=== PATIENT | male | born 2000 | race Caucasian/White ===

== ENCOUNTER 2021-09-16 05:39 | Emergency (ER) | payer SELFPAY ==
[~2021-09-16] VITALS: Ht 185.4 cm; Wt 89.8 kg
[2021-09-16 05:40] VITALS: BP 122/78
--- NOTE | 2021-09-16 05:42 | NUR ---
Place patient on Bed 9.
--- NOTE | 2021-09-16 05:45 | NUR ---
21 YO/M BOBY FROM [facility] W C/O N/V X3 EPISODES, + DIARRHEA X9 EPISODES (WATERY), +GENERALIZED ABDOMINAL PAIN DULL 5/10 NON-RAD CONSTANT SINCE 030, SYMPTOMS BEGAN S/P DRINKING 20ML OF MYLANTA LAXATIVE AT 0100 FOR "STOMACH FEELING FULL." PT DENIES ANY BLOOD IN EMESIS OR BOWEL, DENIES DIZZYNESS, CHEST PAIN, SOB, FEVERS OR CHILLS. PT WAS GIVEN 4MG ZOFRAN BY SYLVIA W MILD RELIEF. PT DOES NOT WANT PAIN MEDICATION AT THIS TIME. BREATHING EVEN AND UNLABORED. NAD NOTED, WILL CONTINUE TO MONITOR. PMH:DENIES ALLERGIES: DENIES
[2021-09-16] MEDS ORDERED: NACL 0.9% 1,000 ML IV ONE ×2 (05:55→07:05)
--- NOTE | 2021-09-16 06:20 | NUR ---
Dr. Terrell examining patient.
[2021-09-16 06:29] LABS: BASOPHILS % (AUTO) 0.1 % (0.0-2.0); EOSINOPHILS % (AUTO) 0.1 % (0.0-4.0); HEMATOCRIT 44.7 % (36-52); HEMOGLOBIN 14.8 g/dL (12.0-18.0); LYMPHOCYTES # (AUTO) 0.3 K/uL (2.0-11.5); LYMPHOCYTES % (AUTO) 1.7 % (20.5-51.1); MEAN CORPUSCULAR HEMOGLOBIN 28 pg (27-31); MEAN CORPUSCULAR HGB CONC 33 g/dL (33-37); MEAN CORPUSCULAR VOLUME 83.8 fL (80-94); MONOCYTES # (AUTO) 0.8 K/uL (0.8-1.0); MONOCYTES % (AUTO) 5.6 % (1.7-9.3); NEUTROPHILS % (AUTO) 92.5 % (42.2-75.2); PLATELET COUNT (AUTO) 175 K/uL (140-450); RED BLOOD CELL COUNT(AUTO) 5.34 MIL/uL (4.20-6.10); RED CELL DISTRIBUTION WIDTH 14.1 % (11.6-13.7); WHITE BLOOD COUNT (AUTO) 15.2 K/uL (4.5-11.0)
[2021-09-16] MEDS ORDERED: DIPHENOXYLATE /ATROPINE 2.5 MG TAB PO ONE (06:35)
--- NOTE | 2021-09-16 06:52 | NUR ---
pt ambulatory to bathroom w steady gait.
--- NOTE | 2021-09-16 07:02 | NUR ---
PT NOPW REQUESTING ABDOMINAL PAIN MEDICATION AND FOR NAUSEA, BRENDAD MADE AWARE.
[2021-09-16] MEDS ORDERED: FAMOTIDINE 20 MG/2 ML VIAL IVP ONE (07:05)
[2021-09-16] MEDS ORDERED: ONDANSETRON 4 MG/2 ML VIAL IVP ONE (07:05)
[2021-09-16] MEDS ORDERED: KETOROLAC 30 MG/ML VIAL IVP ONE (07:05)
[2021-09-16 07:11] LABS: ANION GAP 12.4 (8-16); CARBON DIOXIDE 26.1 mmol/L (21-32); CREATININE 1.1 mg/dL (0.6-1.3); POTASSIUM 4.5 mmol/L (3.5-5.1); TOTAL BILIRUBIN 0.5 mg/dL (0.0-1.0)
[2021-09-16 07:23] LABS: ALBUMIN 4.2 g/dL (3.4-5.0)
--- NOTE | 2021-09-16 07:29 | NUR ---
Pt report given to [facility]. Transfer of care at this time.
--- NOTE | 2021-09-16 07:32 | NUR ---
PT C/O N/V/D SINCE 99. MEDICATED PER MD ORDER. FLUIDS INFUSING. NAD. SAFETY MAINTAINED.
[2021-09-16] MEDS ORDERED: ONDA-188 PO (08:37)
[2021-09-16] MEDS ORDERED: ATRO1TAB PO (08:37)
[2021-09-16 08:50] VITALS: BP 111/68
--- NOTE | 2021-09-16 08:50 | NUR ---
Patient discharged with v/s stable. Written and verbal after care instructions given and explained. Patient alert, oriented and verbalized understanding of instructions. Ambulatory with steady gait. All questions addressed prior to discharge. ID band removed. Patient advised to follow up with PMD. Rx of lomitil, zofran given. Patient educated on indication of medication including possible reaction and side effects. Opportunity to ask questions provided and answered.
== END 2021-09-16 08:50 | disposition home or self-care (01) ==
LOC: MED 05:39
DX: R11.2 Nausea with vomiting, unspecified (principal); R19.7 Diarrhea, unspecified; R53.1 Weakness; R42 Dizziness and giddiness; Z79.899 Other long term (current) drug therapy
CPT/HCPCS: 36415; 80053; 85025; 96361; 96374; 96375; 99284; J1885; J2405; J3490; J7030